=== PATIENT | male | born 1940 | race Caucasian/White ===

== ENCOUNTER 2025-03-26 19:47 | Emergency (ER) | payer MEDICARE, BC ==
[2025-03-26 21:57] LABS: BILIRUBIN,URINE SMALL (Neg); CLARITY,URINE CLEAR (Clear); COLOR,URINE YELLOW (Yellow); GLUCOSE, URINE NEGATIVE (Neg); KETONES,URINE NEGATIVE (Neg); LEUKOCYTE ESTERASE ,URINE NEGATIVE (Neg); NITRITES, URINE NEGATIVE (Neg); OCCULT BLOOD,URINE NEGATIVE (Neg); PROTEIN,URINE 30 mg/dl (Neg)
[2025-03-26 22:00] LABS: UA COLLECTION TYPE CLN CATCH MIDSTREAM
[2025-03-26 22:06] LABS: BACTERIA,URINE FEW /HPF (Neg); HYALINE CASTS 0-3 /LPF (NEGATIVE); SQUAMOUS EPITHELIAL CELL,UR FEW /LPF (FEW); WBC,URINE 0-4 /HPF (0-4)
[2025-03-26 22:07] LABS: MUCUS STRANDS MODERATE /LPF (Neg)
[2025-03-26 22:21] LABS: BASOPHILS % (AUTO) 1.4 % (0-1); EOSINOPHILS % (AUTO) 0.5 % (0-6); HEMATOCRIT 32.6 % (42.0-52.0); HEMOGLOBIN 11.3 g/dl (14.0-17.9); LYMPHOCYTES # (AUTO) 0.4 X10'3 (1.1-4.8); MEAN CORPUSCULAR HGB CONC 34.7 g/dL (33.0-36.5); MEAN CORPUSCULAR VOLUME 100.7 FL (78-98); MEAN PLATELET VOLUME 6.8 FL (7.4-10.4); MONOCYTES # (AUTO) 0.4 X10'3 (0-0.9); MONOCYTES % (AUTO) 15.1 % (2-12); NEUTROPHILS # (AUTO) 1.7 X10'3 (1.8-7.7); PLATELET COUNT 82 X10'3 (140-440); RED BLOOD COUNT 3.23 X10'6 (4.70-6.10); RED CELL DISTRIBUTION WIDTH 14.5 % (11.5-14.5); WHITE BLOOD COUNT 2.5 X10'3 (4.5-11.0)
[2025-03-26 22:34] LABS: ALANINE AMINOTRANSFERASE 19 U/L (12-78); ALBUMIN 4.1 G/DL (3.4-5.0); ALBUMIN/GLOBULIN RATIO 1.3 (1.1-1.5); ALKALINE PHOSPHATASE 141 IU/L (46-116); ANION GAP 11 (8-16); ASPARTATE AMINO TRANSFERASE 21 U/L (10-37); BILIRUBIN,TOTAL 1.6 MG/DL (0.1-1.0); BLOOD UREA NITROGEN 29 MG/DL (7-18); CALCIUM 9.3 MG/DL (8.5-10.1); CHLORIDE 105 MMOL/L (99-107); CREATININE 1.38 MG/DL (0.60-1.10); GLUCOSE 100 MG/DL (70-104); LIPASE 40 U/L (16-77); SODIUM 141 MMOL/L (135-145); TOTAL CARBON DIOXIDE 25.4 MMOL/L (24-32); TOTAL PROTEIN 7.3 G/DL (6.4-8.2); eGFR 49 ML/MIN
[2025-03-26 22:44] LABS: TOTAL CELLS COUNTED 100
[2025-03-26 22:45] LABS: PLATELET ESTIMATE DECREASED
[2025-03-26 23:09] VITALS: TEMP 98.9
--- NOTE | 2025-03-27 01:03 | Physician Documentation ---
History of Present Illness ~ Chief Complaint: Flank Pain Stated Complaint: FLANK PAIN Time Seen by MD: 00:55 Mode of Arrival: POV HPI Patient presents to the emergency room for evaluation of right flank pain over the past 3-4 days. No history of kidney stones or prior instances. History is limited as patient does have dementia in his is at bedside helping. He has taken Tylenol for the pain last dose at 4:00 p.m.. Denies dysuria. Medication Reconciliation Allergies: Coded Allergies: latex (Verified Allergy, Mild, 03/26/25) Uncoded Allergies: SULFA (Allergy, Intermediate, rash, 03/26/25) VINYL (Allergy, Mild, 03/26/25) Past Medical History Smoking Status: Never smoker Review of Systems ROS All review of systems negative except as per HPI Physical Exam Vital Signs: Temperature: 98.9, Source: Oral, Heart Rate: 78, Respiratory Rate: 16, BP: 158/73, Pulse Oximetry: 98 Oxygen Flow Rate: 0 Physical Exam General: Patient is awake, alert, oriented x4 in no acute distress Head: Normocephalic and atraumatic. Eyes: Conjunctival normal. EOMI. PERRL. ENT: Mucous membranes moist. Neck: Supple, trachea is midline. Chest: Clear to auscultation bilaterally without rales, rhonchi, or wheezes. There is no accessory muscle use or retractions. Cardiac: RRR without murmurs, gallops, or rubs. Abd: Soft, nondistended, nontender, with normoactive bowel sounds. No guarding, rebound, or rigidity. Back: Right-sided CVA tenderness Progress Results/Orders Results/Orders Orders - RANDAL ONEAL MD Ct Abdomen Pelvis (03/27/25 01:15) Completed Orders - RANDAL ONEAL MD Cbc/Diff (03/26/25 21:39) BMP (03/26/25 21:39) Lipase (03/26/25 21:39) CMP (03/26/25 21:39) Ua W/Microscopic, Cult If Ind (03/26/25 20:40) Man Diff (03/26/25 22:11) Ct Abdomen Pelvis (03/27/25 01:15) Acetaminophen 325mg Tablet (Tylenol Tabl (03/27/25 01:30) Tramadol Tablet (Ultram Tablet) (03/27/25 01:30) Haloperidol Tablet (Haldol Tablet) (03/27/25 04:35) Medications Received in ER Medications (Trade) Dose Ordered Sig/John Route PRN Reason Start Time Stop Time Status Last Admin Dose Admin (Tylenol tablet) 975 mg ONCE ONCE PO 03/27/25 01:30 03/27/25 01:31 DC 03/27/25 01:53 975 MG (Ultram tablet) 25 mg ONCE ONCE PO 03/27/25 01:30 03/27/25 01:31 DC 03/27/25 01:54 25 MG (Haldol tablet) 5 mg ONCE ONCE PO 03/27/25 04:35 03/27/25 04:36 DC 03/27/25 04:42 5 MG Vital Signs 03/26/25 03/26/25 03/26/25 03/27/25 20:32 23:09 23:28 01:58 Temp 98.7 98.9 Pulse 79 78 88 Resp 16 16 16 17 B/P (MAP) 162/62 158/73 (101) 157/82 (107) Pulse Ox 97 98 96 O2 Flow Rate 0 0 03/27/25 04:21 Pulse 93 Resp 21 B/P (MAP) 147/68 (94) Pulse Ox 96 Laboratory Tests Test 03/26/25 20:40 03/26/25 22:11 Urine Specimen Description Cln catch midstream Urine Color Yellow Urine Clarity Clear Urine pH 6.0 Urine Specific [place] >=1.030 Urine Protein 30 H Urine Glucose (UA) Negative Urine Ketones Negative Urine Occult Blood Negative Urine Nitrite Negative Urine Bilirubin Small Urine Urobilinogen 2.0 H Urine Leukocyte Esterase Negative Urine RBC 3-10 Urine WBC 0-4 Urine Squamous Epithelial Cells Few Urine Bacteria Few Urine Hyaline Casts 0-3 Urine Mucus Moderate Urine Culture Indicated Not ind Volume Urine Centrifuged 10 ml Urine Comment White Blood Count 2.5 L Red Blood Count 3.23 L Hemoglobin 11.3 L Hematocrit 32.6 L Mean Corpuscular Volume 100.7 H Mean Corpuscular Hemoglobin 35.0 H Mean Corpuscular Hemoglobin Concent 34.7 Red Cell Distribution Width 14.5 Platelet Count 82 L Mean Platelet Volume 6.8 L Neutrophils (%) (Auto) 69.0 Lymphocytes (%) (Auto) 14.0 L Monocytes (%) (Auto) 15.1 H Eosinophils (%) (Auto) 0.5 Basophils (%) (Auto) 1.4 H Neutrophils # (Auto) 1.7 L Lymphocytes # (Auto) 0.4 L Monocytes # (Auto) 0.4 Eosinophils # (Auto) 0.0 Basophils # (Auto) 0.0 CBC Comment Differential Total Cells Counted 100 Neutrophils % (Manual) 70.0 Lymphocytes % (Manual) 16.0 L Monocytes % (Manual) 14.0 H Platelet Estimate Decreased Red Blood Cell Morphology Perf Basophilic Stippling Macrocytosis 1+ Sodium Level 141 Potassium Level 4.0 Chloride Level 105 Carbon Dioxide Level 25.4 Anion Gap 11 Blood Urea Nitrogen 29 H Creatinine 1.38 H Estimated GFR/1.73 m2 49 BUN/Creatinine Ratio 21.0 H Glucose Level 100 Calcium Level 9.3 Total Bilirubin 1.6 H Aspartate Amino Transf (AST/SGOT) 21 Alanine Aminotransferase (ALT/SGPT) 19 Alkaline Phosphatase 141 H Total Protein 7.3 Albumin 4.1 Globulin 3.2 Albumin/Globulin Ratio 1.3 Lipase 40 Chemistry Comments Medical Decision Making Findings Patient presented to the emergency room for evaluation of back pain as per HPI. Differentials include but are not limited to musculoskeletal pain aortic pathology kidney stone shingles radiculopathy therefore emergent labs and imaging indicated. CT scan is negative for stones however does show significantly enlarged aortic aneurysm. Discussed these results with who was surprised to hear that it was 5 cm as she remembers it being 3 cm not long ago. Although patient does have flank pain is pain is actually on his axillary side right above his iliac crest. I do not feel it is related to his aortic acutely however with this information that has concern that patient has not expanding aorta and needs intervention sooner rather than later. Blood pressure is reassuring. After a long discussion with and they have decided that they need to go home as patient has been gaining to . Rather than things escalating she wants to get him home and we will have very close follow up calling Dr. Lemons's office who apparently has previous imaging results which she would do not have and we exhausted [facility] as well. I will be leaving a message with oncoming physician to check with Dr. Lemons's office regarding these findings. demonstrates very good insight to the plan and she states she will be working from her side of things to call doctor's office and to follow up. I am also working this evening and therefore will to my best to make sure everything was taking care of. Physical exam is reassuring for no shingles/rash. Departure Disposition: HOME / SELF CARE / HOMELESS Impression: Primary Impression: Back problem Additional Impression: Aortic aneurysm Condition: Fair Discharge Instructions: Abdominal Aortic Aneurysm, Abdominal Aortic Aneurysm- Brief Additional Instructions: Follow up with Dr. Lemons's office to see if they aorta is expanding significantly. CT scan showed that it was 5 cm in our emergency room today although this was done without contrast. We will be working from our department as well to try and determine whether this requires surgical intervention. Return for worsening of symptoms Referrals: NO PRIMARY CARE PROVIDER (PCP) Education Educated: Patient, Family Educated regarding: diagnosis, need for follow up Signature Scribe Signature: No scribe Attestation: The note accurately reflects work and decisions made by me.Randal Oneal MD 03/27/25 05:20 RANDAL ONEAL MD March 27, 2025 01:03
[2025-03-27] MEDS: acetaminophen 325mg tablet PO ONE (01:53)
[2025-03-27] MEDS: traMADol 50MG tablet PO ONE (01:54)
[2025-03-27 04:21] VITALS: BP 147/68; PULSE 93; RESP 21; O2SAT 96
--- NOTE | 2025-03-27 04:32 | RADIOLOGY REPORT ---
Exam: CT CT ABDOMEN PELVIS History: Right flank pain Comparison Study: None Technique: Multidetector spiral CT of the abdomen and pelvis was performed from lung bases to pubic s ymphysis. Imaging was performed without intravenous contrast. Coronal and sagittal multiplanar reform ats were obtained from the axial data set by the technologist. Radiation Dose : 1. Abdomen/Pelvis: CTDIvol 30.1 mGy, DLP 1629.9 mGy*cm. Findings: Evaluation of vasculature and solid organs is limited due to lack of intravenous contrast use. Lung Bases: Bilateral lower lobe atelectasis. Coronary artery calcifications. Visualized portions of the heart and pericardium are unremarkable. Liver: The liver is normal in size. No focal lesions. Gallbladder and Biliary Tree: Gallstone. No intrahepatic or extrahepatic biliary ductal dilatation. Spleen: Unremarkable Pancreas: The pancreas is grossly unremarkable. Adrenal Glands: Unremarkable Kidneys: Kidneys are unremarkable without calculi or hydronephrosis. GI tract: Hiatal hernia. No evidence of small bowel wall thickening or abnormal dilatation to suggest bowel obstruction. The colon is unremarkable. The appendix is not visualized, however no inflammator y changes in the right lower quadrant to suggest acute appendicitis. Peritoneum/mesentery/retroperitoneum. No evidence of free intraperitoneal air. No ascites. No evidenc e of suspicious lymphadenopathy. Abdominal Wall: Unremarkable. Vasculature: Infrarenal abdominal aortic aneurysm measures 5.0 cm.. Urinary Bladder: Grossly unremarkable for degree of distention. Pelvic Organs: Enlarged prostate. Musculoskeletal: No aggressive focal bony lesions, acute fractures or dislocation. S shaped scoliosi s. Bilateral hip joint space narrowing. Status post median sternotomy. Soft tissues: Bilateral fat containing inguinal hernias. IMPRESSION: 1. No intrarenal calculi or obstructive uropathy. No acute process. 2. 5 cm infrarenal abdominal aortic aneurysm. 3. Gallstones. 4. Bibasilar atelectasis.
[2025-03-27] MEDS: haloperidol 5mg tablet PO ONE (04:42)
== END 2025-03-27 05:27 | disposition home or self-care (01) ==
LOC: ER 19:48
DX: I71.40 Abdominal aortic aneurysm, without rupture, unspecified (principal); M54.9 Dorsalgia, unspecified
CPT/HCPCS: 36415; 74176; 80053; 81001; 83690; 85007; 85025; 99284